=== PATIENT | male | born 1985 | race Caucasian/White ===

== ENCOUNTER → 2021-01-16 | Emergency (ER) | payer MEDICAID ==
[~2021-01-16] VITALS: Ht 175.3 cm; Wt 68.2 kg
[~2021-01-16] MED LIST: folic acid 1mg/0.2ml inj IV ONE; normal saline 1000ml 1,000 ML IV ONE; thiamine 100mg/ml 2ml inj. IV ONE
[2021-01-16 19:26] VITALS: BP 123/87
[2021-01-16 20:28] LABS: BASOPHILS # (AUTO) 0.1 X10'3 (0-0.2); BASOPHILS % (AUTO) 1.1 % (0-1); EOSINOPHILS # (AUTO) 0.1 X10'3 (0-0.9); EOSINOPHILS % (AUTO) 1.8 % (0-6); HEMATOCRIT 46.5 % (42.0-52.0); HEMOGLOBIN 15.8 g/dl (14.0-17.9); LYMPHOCYTES # (AUTO) 1.7 X10'3 (1.1-4.8); LYMPHOCYTES % (AUTO) 30.5 % (21-51); MEAN CORPUSCULAR HEMOGLOBIN 33.2 PG (27.0-31.0); MEAN CORPUSCULAR VOLUME 97.8 FL (78-98); MEAN PLATELET VOLUME 7.5 FL (7.4-10.4); MONOCYTES # (AUTO) 0.7 X10'3 (0-0.9); MONOCYTES % (AUTO) 13.2 % (2-12); NEUTROPHILS % (AUTO) 53.4 % (42-75); PLATELET COUNT 244 X10'3 (140-440); RED BLOOD COUNT 4.76 X10'6 (4.70-6.10); RED CELL DISTRIBUTION WIDTH 15.4 % (11.5-14.5); WHITE BLOOD COUNT 5.5 X10'3 (4.5-11.0)
[2021-01-16 20:38] LABS: CLARITY,URINE CLEAR (Clear); COLOR,URINE YELLOW (Yellow); GLUCOSE, URINE NEGATIVE (Neg); KETONES,URINE NEGATIVE (Neg); LEUKOCYTE ESTERASE ,URINE NEGATIVE (Neg); NITRITES, URINE NEGATIVE (Neg); OCCULT BLOOD,URINE NEGATIVE (Neg); PROTEIN,URINE NEGATIVE (Neg); UA COLLECTION TYPE CLN CATCH MIDSTREAM; UROBILINOGEN,URINE 0.2 E.U/dL (0.2-1.0)
[2021-01-16 20:38] LABS: ALANINE AMINOTRANSFERASE 41 U/L (12-78); ALBUMIN 3.6 G/DL (3.4-5.0); ALBUMIN/GLOBULIN RATIO 0.9 (1.1-1.5); ALKALINE PHOSPHATASE 110 IU/L (46-116); ANION GAP 13 (8-16); ASPARTATE AMINO TRANSFERASE 43 U/L (10-37); BILIRUBIN,TOTAL 0.2 MG/DL (0.1-1.0); BLOOD UREA NITROGEN 7 MG/DL (7-18); BUN/CREATININE RATIO 7.3 (5.4-32.0); CALCIUM 8.1 MG/DL (8.5-10.1); CHLORIDE 109 MMOL/L (99-107); CREATININE 0.96 MG/DL (0.60-1.10); GLUCOSE 129 MG/DL (70-104); LIPASE 161 U/L (73-393); MAGNESIUM 2.2 MG/DL (1.5-2.4); POTASSIUM 4.3 MMOL/L (3.5-5.1); SODIUM 146 MMOL/L (135-145); TOTAL CARBON DIOXIDE 23.7 MMOL/L (24-32); TOTAL PROTEIN 7.7 G/DL (6.4-8.2); eGFR 90 ML/MIN
== END | disposition home or self-care (01) ==
LOC: ER 19:01
DX: Z00.00 Encounter for general adult medical examination without abnormal findings (principal); F10.20 Alcohol dependence, uncomplicated; Z72.0 Tobacco use
CPT/HCPCS: 36415; 80053; 81003; 83690; 83735; 85025; 99281; 99283

== ENCOUNTER 2022-12-03 13:07 | Emergency (ER) | payer MEDICAID ==
[~2022-12-03] VITALS: Ht 172.7 cm; Wt 81.8 kg
[2022-12-03 13:10] VITALS: BP 127/94; PULSE 111; RESP 20; TEMP 98.5; O2SAT 96
--- NOTE | 2022-12-03 15:28 | NUR ---
PT STUMBLED TO GROUND IN ROOM. FOUND ON KNEES TRYING TO GET BACK UP WITH AN EMPTY 50ML BOTTLE OF LIQUOR.
[2022-12-03] MEDS ORDERED: LORA-269 PO (16:18)
[2022-12-03] MEDS ORDERED: GABA-530 PO (16:18)
[2022-12-03] MEDS ORDERED: ONDA4TAB12 PO (16:18)
== END 2022-12-03 16:28 | disposition home or self-care (01) ==
LOC: ER 13:08
DX: Z00.8 Encounter for other general examination (principal); F17.200 Nicotine dependence, unspecified, uncomplicated; Z79.899 Other long term (current) drug therapy
CPT/HCPCS: 99283

== ENCOUNTER 2022-12-03 20:58 | Emergency (ER) | payer MEDICAID ==
[~2022-12-03] VITALS: Ht 172.7 cm; Wt 75.0 kg
[~2022-12-03 20:58] MED LIST changes: +GABA-530 PO; +LORA-269 PO; +ONDA4TAB12 PO; -folic acid 1mg/0.2ml inj IV ONE; -normal saline 1000ml 1,000 ML IV ONE; -thiamine 100mg/ml 2ml inj. IV ONE
[2022-12-03] MEDS ORDERED: normal saline 1000ML IV soln IVB ONE (22:30)
[2022-12-03] MEDS ORDERED: thiamine 100mg/ml 2ml inj. IV ONE (22:30)
[2022-12-03] MEDS ORDERED: ondansetron/PF 4mg/2ml inj IV ONE (22:30)
[2022-12-03] MEDS ORDERED: LORazepam 2 mg/ml vial IV ONE (22:30)
[2022-12-03 22:58] LABS: BASOPHILS % (AUTO) 0.2 % (0-1); EOSINOPHILS % (AUTO) 0.3 % (0-6); HEMATOCRIT 46.2 % (42.0-52.0); HEMOGLOBIN 15.6 g/dl (14.0-17.9); LYMPHOCYTES % (AUTO) 10.6 % (21-51); MEAN CORPUSCULAR HEMOGLOBIN 32.8 PG (27.0-31.0); MEAN CORPUSCULAR HGB CONC 33.8 g/dL (33.0-36.5); MEAN PLATELET VOLUME 8.7 FL (7.4-10.4); MONOCYTES # (AUTO) 0.9 X10'3 (0-0.9); MONOCYTES % (AUTO) 9.2 % (2-12); NEUTROPHILS # (AUTO) 7.8 X10'3 (1.8-7.7); NEUTROPHILS % (AUTO) 79.7 % (42-75); PLATELET COUNT 95 X10'3 (140-440); RED BLOOD COUNT 4.76 X10'6 (4.70-6.10); RED CELL DISTRIBUTION WIDTH 15.5 % (11.5-14.5); WHITE BLOOD COUNT 9.8 X10'3 (4.5-11.0)
[2022-12-03 23:13] LABS: ALANINE AMINOTRANSFERASE 52 U/L (12-78); ALBUMIN 3.3 G/DL (3.4-5.0); ALKALINE PHOSPHATASE 118 IU/L (46-116); ANION GAP 14 (8-16); ASPARTATE AMINO TRANSFERASE 79 U/L (10-37); BILIRUBIN,TOTAL 0.5 MG/DL (0.1-1.0); BLOOD UREA NITROGEN 5 MG/DL (7-18); CALCIUM 8.1 MG/DL (8.5-10.1); CHLORIDE 106 MMOL/L (99-107); CREATININE 0.84 MG/DL (0.60-1.10); GLUCOSE 137 MG/DL (70-104); LIPASE 219 U/L (73-393); POTASSIUM 3.8 MMOL/L (3.5-5.1); SODIUM 143 MMOL/L (135-145); TOTAL CARBON DIOXIDE 22.7 MMOL/L (24-32); TOTAL PROTEIN 6.6 G/DL (6.4-8.2); eGFR > 90 ML/MIN
--- NOTE | 2022-12-04 02:23 | NUR ---
IV DC'D PT BEING DISCHARGED DRESSING APPLIED
[2022-12-04 02:25] VITALS: BP 123/78; PULSE 82; RESP 18; TEMP 98.6; O2SAT 98
== END 2022-12-04 02:25 | disposition home or self-care (01) ==
LOC: ER 20:58
DX: F10.10 Alcohol abuse, uncomplicated (principal); F17.200 Nicotine dependence, unspecified, uncomplicated; Y90.9 Presence of alcohol in blood, level not specified
CPT/HCPCS: 36415; 80053; 80320; 83690; 85025; 85610; 93005; 96361; 96374; 96375; 99284; J2060; J2405; J3411; J7030

== ENCOUNTER 2023-09-27 09:43 | Emergency (ER) | payer MEDICAID ==
[~2023-09-27] VITALS: Ht 172.7 cm; Wt 68.2 kg
[2023-09-27 09:45] VITALS: BP 124/85; PULSE 103; O2SAT 94
[2023-09-27 11:11] VITALS: RESP 16; TEMP 98
== END 2023-09-27 11:14 | disposition home or self-care (01) ==
LOC: ER 09:43
DX: F10.20 Alcohol dependence, uncomplicated (principal); Z79.899 Other long term (current) drug therapy; Y90.9 Presence of alcohol in blood, level not specified
CPT/HCPCS: 99281

== ENCOUNTER 2023-09-28 01:31 | Emergency (ER) | payer MEDICAID ==
[~2023-09-28] VITALS: Ht 172.7 cm; Wt 68.2 kg
[2023-09-28] MEDS ORDERED: diazepam inj 5 MG/ML inj. IV STA (06:41)
[2023-09-28 08:21] LABS: BASOPHILS # (AUTO) 0.1 X10'3 (0-0.2); BASOPHILS % (AUTO) 0.9 % (0-1); EOSINOPHILS % (AUTO) 0.7 % (0-6); HEMATOCRIT 44.2 % (42.0-52.0); LYMPHOCYTES # (AUTO) 1.8 X10'3 (1.1-4.8); LYMPHOCYTES % (AUTO) 30.2 % (21-51); MEAN CORPUSCULAR HEMOGLOBIN 32.7 PG (27.0-31.0); MEAN CORPUSCULAR HGB CONC 33.9 g/dL (33.0-36.5); MEAN CORPUSCULAR VOLUME 96.4 FL (78-98); MEAN PLATELET VOLUME 8.8 FL (7.4-10.4); MONOCYTES # (AUTO) 0.6 X10'3 (0-0.9); MONOCYTES % (AUTO) 9.2 % (2-12); NEUTROPHILS # (AUTO) 3.6 X10'3 (1.8-7.7); PLATELET COUNT 179 X10'3 (140-440); RED BLOOD COUNT 4.58 X10'6 (4.70-6.10); RED CELL DISTRIBUTION WIDTH 17.9 % (11.5-14.5); WHITE BLOOD COUNT 6.1 X10'3 (4.5-11.0)
[2023-09-28 08:25] LABS: ALBUMIN 3.3 G/DL (3.4-5.0); ANION GAP 12 (8-16); BLOOD UREA NITROGEN 4 MG/DL (7-18); BUN/CREATININE RATIO 5.6 (10.0-20.0); CHLORIDE 103 MMOL/L (99-107); CREATININE 0.71 MG/DL (0.60-1.10); ETHANOL 167 MG/DL (<10); GLUCOSE 120 MG/DL (70-104); POTASSIUM 3.2 MMOL/L (3.5-5.1); SODIUM 142 MMOL/L (135-145); TOTAL CARBON DIOXIDE 27.5 MMOL/L (24-32); eCRCL 139 ML/MIN; eGFR > 90 ML/MIN
[2023-09-28] MEDS: magnesium oxide 400mg tablet PO ONE (08:40)
[2023-09-28 08:52] VITALS: BP 118/81; PULSE 82; RESP 17; TEMP 98.1; O2SAT 97
== END 2023-09-28 08:54 | disposition home or self-care (01) ==
LOC: ER 01:32
DX: F10.129 Alcohol abuse with intoxication, unspecified (principal); Z79.899 Other long term (current) drug therapy; Y90.9 Presence of alcohol in blood, level not specified
CPT/HCPCS: 36415; 80048; 80320; 85025; 93005; 99284; A4615